=== PATIENT | female | born 1975 | race Caucasian/White ===

== ENCOUNTER 2016-11-03 06:48 | Day surgery (SDC) | payer OTHER ==
[~2016-11-03] VITALS: Ht 167.6 cm; Wt 56.0 kg
[~2016-11-03 06:48] MED LIST: AUGMENTIN500 MG PO; COLACE100 MG PO; EPIPEN ADU0.3 MG/0.3 IM; FERROCITE324 MG PO; MOTRIN800 MG PO; MULTI-DAY VITA1 EACH PO; NOHOMEMEDS; OXYCODONE H5 MG/5 ML PO; PERCOCET 5/31 TABLET PO; SILVADENE20 GM TP; SLOW RELEASE I160 MG PO; SYNTHROID25 MCG PO; VICODIN,LORT1 TABLET PO
[2016-11-03 07:25] VITALS: BP 126/59
[2016-11-03 13:30] VITALS: BP 119/69
[2016-11-03 16:13] VITALS: BP 106/60
[2016-11-03 20:25] VITALS: BP 105/62
[2016-11-03 23:50] VITALS: BP 102/61
[2016-11-04 04:26] VITALS: BP 104/63
[2016-11-04 07:16] LABS: EOSINOPHIL (%) 1.1 % (0-5); EOSINOPHIL COUNT 0.1 K/uL (0-0.3); IMMATURE GRANULOCYTE (%) 0.2 % (0.0-0.7); INSTRUMENT ABS NEUTROPHIL CT 4.4 K/uL; LYMPHOCYTE COUNT 0.7 K/uL (1.0-2.8); MCH 26.1 PG (29.0-34.0); MCHC 32.1 G/DL (30.0-36.0); MCV 81.2 FL (83-99); MEAN PLAT.VOLUME 9.9 uM^3 (9.5-12.4); MONOCYTE COUNT 0.4 K/uL (0-0.8); NEUTROPHIL (%) 79.4 % (45-76); NEUTROPHIL COUNT 4.4 K/uL (1.8-6.4); RBC DIS.WIDTH-CV 18.3 % (11.8-14.6); RBC DIS.WIDTH-SD 53.9 % (39-53); RED BLOOD COUNT 3.57 M/uL (3.80-5.20)
[2016-11-04 07:40] LABS: ANION GAP 6 MEQ/L (2-14); CHLORIDE 106 MEQ/L (99-109); GFR ESTIMATE (CALCULATED) > 59 mL/min/; GLUCOSE 84 mg/dL (70-99); POTASSIUM 3.6 MEQ/L (3.7-5.4); SAMPLE HEMOLYSIS CHECK 0; SAMPLE ICTERIC CHECK 0; SAMPLE LIPEMIA CHECK 0; SODIUM 139 MEQ/L (136-147); UREA NITROGEN (BUN) 5 mg/dL (9-23)
[2016-11-04 07:50] VITALS: BP 103/67
[2016-11-04 08:06] LABS: PLATELET COUNT 194 K/uL (156-360); WHITE BLOOD COUNT 5.6 K/uL (4.1-10.2)
[2016-11-04] MEDS ORDERED: MOTRIN600 MG PO (10:37)
[2016-11-04] MEDS ORDERED: ENDOCET 5-3251 EACH PO (10:37)
== END 2016-11-04 11:49 | disposition home or self-care (01) ==
LOC: SDC 06:48 → 2EAST 11:52 → 2SOUTH 11:52 → SDC 13:04 → 2EAST 13:30 → EDSTATUS 14:06 → SDC 14:06 → 2EAST 11-04 11:49
PROVIDERS: Obstetrics & Gynecology
DX: N92.0 Excessive and frequent menstruation with regular cycle (principal); D64.9 Anemia, unspecified; R07.9 Chest pain, unspecified; N72 Inflammatory disease of cervix uteri; N80.0 Endometriosis of uterus; D25.9 Leiomyoma of uterus, unspecified; E03.9 Hypothyroidism, unspecified; Z80.49 Family history of malignant neoplasm of other genital organs; Z83.3 Family history of diabetes mellitus; Z83.49 Family history of other endocrine, nutritional and metabolic diseases; Z83.518 Family history of other specified eye disorder; Z82.49 Family history of ischemic heart disease and other diseases of the circulatory system; Z80.42 Family history of malignant neoplasm of prostate; Z82.0 Family history of epilepsy and other diseases of the nervous system; Z81.8 Family history of other mental and behavioral disorders; Z91.09 Other allergy status, other than to drugs and biological substances; Z91.030 Bee allergy status; Z88.8 Allergy status to other drugs, medicaments and biological substances
CPT/HCPCS: 80048; 85025; 86850; 86900; 86901; 88305; 88307; 88331; 93005; G0378; J0131; J0690; J1170; J1885; J2250; J2405; J2765; J3010; J7120; S0020

== ENCOUNTER 2017-05-05 19:49 | Emergency (ER) | payer OTHER ==
[~2017-05-05] VITALS: Ht 167.6 cm; Wt 56.3 kg
[~2017-05-05 19:49] MED LIST changes: +ENDOCET 5-3251 EACH PO; +MOTRIN600 MG PO
[2017-05-05] MEDS ORDERED: ATARAX,VISTARIL25 MG PO (21:49)
[2017-05-05] MEDS ORDERED: PEPCID20 MG PO (21:49)
[2017-05-05 22:19] VITALS: BP 128/80
== END 2017-05-05 22:30 | disposition home or self-care (01) ==
LOC: EXP 19:49 → EME 19:49 → EXP 22:30
DX: T78.40XA Allergy, unspecified, initial encounter (principal); Z88.8 Allergy status to other drugs, medicaments and biological substances; Z91.030 Bee allergy status
CPT/HCPCS: 99281; 99283; Q0177

== ENCOUNTER → 2017-05-22 | Outpatient (CLI) | payer OTHER ==
[~2017-05-22] MED LIST changes: +ATARAX,VISTARIL25 MG PO; +PEPCID20 MG PO
== END | disposition home or self-care (01) ==
LOC: EEG 08:39
DX: R55 Syncope and collapse (principal)
CPT/HCPCS: 95954